=== PATIENT | male | born 1945 | race Caucasian/White ===

== ENCOUNTER 2016-10-14 18:41 | Inpatient (IN) | payer MEDICARE ==
--- NOTE | ~2016-10-14 | IDS ---
Interim Discharge Summary [facility] [address] [place]. [address] NAME: ISAIAS CONNORS : 49 STATUS : ADM IN PAT#: [id number] AGE: 70 ADM/REG DATE : 10/14/16 MR#: [id number] REPORT SERV DATE: 10/22/16 DICTATED BY: OTONIEL SEVILLA DATE: 10/22/16 REPORT STATUS : Draft TRANSCRIBED BY: MODL DATE: 10/22/16 ADMISSION DATE: 10/14/2016 DISCHARGE DATE: CONSULTANTS: Dr. Payan, Neurology, and Dr. Isaias Liu, orthopedic hand specialist. PROBLEM LIST: 1. Acute stroke, left centrum semiovale. 2. Acute gout attack, left wrist and left knee, much improved. 3. Metabolic encephalopathy after stroke with depression with paranoid features, now resolved. 4. Uncontrolled diabetes mellitus type 2 with A1c 11.2%, now improved. 5. Recent sepsis at [facility], 08/2016, with right ureter stones requiring stent placement and internalization. 6. History of previous atrial fibrillation with cardioversion. 7. Recent left upper extremity deep vein thrombosis associated with PICC line. 8. Severe protein calorie malnutrition. 9. Hypertension. 10.Fatty liver. HISTORY: This gentleman had been living at home, independent, driving, taking care of not only himself, but his demented and quite active. He was admitted to [facility], 09/21/2016. He was found down on the ground. He ended up admitted to the Intensive Care, had hyperosmolar nonketotic state along with acute kidney injury (did not end up needing dialysis) and was found ultimately to have stones in the right ureter and had stent placement. He was seen by the critical care team at [facility] as well as the meter reader, Dr. Cameron Cobb, and by urologist, Dr. Joselito Gonzalez. It was recommended after recovery, the patient is to follow up with Dr. Gonzalez to have the internalized stent removed and to have definitive stone management. After [facility], the patient was discharged to [facility], and he was transported to our [facility] Emergency Room because of progressive weakness, somnolence, and general decline. Also he was having episodes where he would curse and be angry which is not his typical baseline according to the family. Apparently, this was happening even when he was in the ICU at [facility], and it appears he was started on Remeron at the time of discharge. He had also been anorexic. Referred to our team to have evaluation and initially there was some question about whether he might have pneumonia. His procalcitonin levels were normal at 0.09 and white blood count was normal. X-ray with basilar atelectasis, otherwise unremarkable. So, he was not felt to have pneumonia. CT of the brain without contrast on admission showed no acute abnormalities. There was moderate cortical volume loss and advanced deep white matter ischemic changes throughout the brain plus an old right basal ganglia and right caudate head lacunar infarct. The patient also had a CT scan of the abdomen and pelvis on admission which revealed a double-J catheter in the right kidney drainage system with some mild perinephric stranding. A stone adjacent to the stent in the mid ureter measuring 7 x 4 mm. MRI of the brain on 10/16/2016 revealed acute centrum semiovale infarction on the left side, extensive white matter changes Interim Discharge Summary [address] [address] NAME: ISAIAS CONNORS : 49 STATUS : ADM IN [facility]#: [id number] AGE: 70 ADM/REG DATE : 10/14/16 MR#: [id number] REPORT SERV DATE: 10/22/16 DICTATED BY: OTONIEL SEVILLA DATE: 10/22/16 REPORT STATUS : Draft TRANSCRIBED BY: MODGwen DATE: 10/22/16 consistent with severe microangiopathic leukoencephalopathy. There was micro bleeds noted suggesting the possibility of amyloid angiopathy. Moderate generalized atrophy was noted. Carotid ultrasound revealed less than 50% luminal internal carotid artery stenosis bilaterally. The patient developed acute pain, swelling, and redness in his left wrist. No trauma. X- rays of that left wrist revealed no significant bony abnormalities. To me it looks like a gout like episode, I gave him some colchicine, had Hand specialist, Dr. Liu, see him. 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 Recommended a splint and continued with our current care. The colchicine helped quickly. We stopped it, and within a day or so, he started to have pain again in his left wrist and in his left knee, appeared quite similar. We discussed the option of colchicine again; however, the patient at this point in time was very anorexic, and his granddaughter who stated she is his power of state's attorney, want us to try to get something to stimulate his appetite as the Remeron at 15 mg was not adequately doing that, so we have given him some prednisone orally and his left knee and left wrist have returned where there is no pain. The patient was withdrawn. He was argumentative. He was not cooperative with medicines, x- rays, physical therapy, lab tests, just basically stating that nothing will get him better no matter what we do or say. We tried to encourage him that we thought his stroke and recent kidney stone and infection were conditions he could come back from. His bedside swallow showed he could take mechanical soft food with chopped meats with gravy and thin liquids. Neurology saw him and agreed that this might be a representation of depression with some paranoid ideas. He has probably has increase of his Remeron to 30 mg at bedtime, and he and I have talked about it a number of times, and he states that he is willing to try, and in fact now he is stating he wants to go to rehab and feels like he does have a chance for getting better. Neurology had also added some Depakote for mood stabilization. Currently, the patient is participating with therapy taking his medicines, allowing lab test done, cooperative with the staff. The patient is still on anticoagulation because of a history of previous paroxysmal atrial fibrillation and because of his stroke and he had a report of a DVT in his left upper extremity when he was at [facility] in August. Hopefully with the Remeron and the steroids, his appetite will improve. It has in the short term where he was not needing anything. Now, he is beginning to eat. He does have signs of severe protein calorie malnutrition with his albumin of 2.1 and with recent significant weight loss. He is going to need inpatient rehab. His granddaughter is helping and coordinating this as well. ARTEMIO/ERIL Otoniel Interim Discharge Summary [facility] [address] [address] NAME: ISAIAS CONNORS : 49 STATUS : ADM IN PAT#: [id number] AGE: 70 ADM/REG DATE : 10/14/16 MR#: [id number] REPORT SERV DATE: 10/22/16 DICTATED BY: OTONIEL SEVILLA DATE: 10/22/16 REPORT STATUS : Draft TRANSCRIBED BY: MODL DATE: 10/22/16 Uziel Sevilla M.D. / [id number] CC: Otoniel Sevilla M.D. [facility]
--- NOTE | ~2016-10-14 | HP ---
History And Physical [place] [id number] [facility] [place]. [address] NAME: ISAIAS CONNORS : 49 STATUS : ADM IN [facility]#: [id number] AGE: 70 ADM/REG DATE : 10/14/16 MR#: [id number] REPORT SERV DATE: 10/15/16 DICTATED BY: ANDREINA ALEX DATE: 10/14/16 REPORT STATUS : Draft TRANSCRIBED BY: MODL DATE: 10/14/16 DATE OF ADMISSION: 10/14/2016 CHIEF COMPLAINT: Progressive weakness. HISTORY OF PRESENT ILLNESS: The patient is a 70-year-old male accompanied by multiple family members, grandchildren, and their spouses, who bring the patient in after having progressive weakness, somnolence, and clinical decline from nursing facility. The patient is a 70-year-old male with past medical history of hypertension, atrial flutter per records that was cardioverted, also diabetes who has been noncompliant with his medications, who has been at [facility] and had extended ICU stay for DKA, resultantly was found to have "approximately 19 TIAs," and what was reported as ICU delirium, subsequently developed left upper extremity blood clot and had kidney stones with requirement for nephrostomy tube and resultant internalization. Was discharged to facility for rehab, but family noticed that since that rehab, the patient has been having generalized weakness, still having not gone to his baseline mental status, in which he has occasional breakouts of cursing, which is atypical for this patient, which was also noted while he was in ICU. Additionally, the patient was weighed and was reported to have lost 33 pounds in six days. Family was concerned about the weight loss and still not recovering mental status, and brought the patient to [facility]. Symptoms have been constant, moderate severity. No pain or radiating symptoms per the patient. The patient currently denies any nausea, vomiting, chest pain, or shortness of breath, but does feel grossly weak, saying that even when he tries to do activities, it is very difficult for him to participate in these activities. There are no relieving or worsening symptoms. Symptoms are still currently present, although mental status appears at his better point than what he has been. Family also requests the patient is not DNR as reported on transfer forms. REVIEW OF SYSTEMS: GENERAL: No fevers or chills. EYES: No eye pain or visual changes. Does have poor vision in right eye and on left eye. ENT: No sinus drainage or congestion. NEURO: Does have continuous delirium since recent admission for stroke with occasional confusion, but no headaches. SKIN: No rashes or bruising. RESPIRATORY: No shortness of breath. Mild cough. CV: No chest pain or palpitations. GI: No vomiting or diarrhea. : Does have dark urine with hematuria. No dysuria. MUSCULOSKELETAL: Does have arthralgias and weakness. ENDO: Does have increased weakness. HEME: Bleeding in urine, but no bruising on skin. IMMUNOLOGIC: No rhinorrhea. PSYCH: Does have confusion that has not resolved since admission at [facility] and no anxiety. PAST MEDICAL HISTORY: Noted for gout, atrial flutter status post cardioversion many years History And Physical [address] [address] NAME: ISAIAS CONNORS : [birth year] STATUS : ADM IN [facility]#: [id number] AGE: 70 ADM/REG DATE : 10/14/16 MR#: [id number] REPORT SERV DATE: 10/15/16 DICTATED BY: ANDREINA ALEX DATE: 10/14/16 REPORT STATUS : Draft TRANSCRIBED BY: JUDIE DATE: 10/14/16 ago, hypertension, recent DKA and uncontrolled diabetes, THEA, kidney stones with nephrostomy tube and internalization, right upper extremity DVT, medical noncompliance, and rhabdo. PAST SURGICAL HISTORY: Has had dental surgeries and cardioversion. SOCIAL HISTORY: Quit smoking 40 years ago and alcohol many years ago. No current alcohol. No illicits. 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 FAMILY HISTORY: Hypertension, stroke, heart disease, brain cancer, and gout. ALLERGIES: NO KNOWN DRUG ALLERGIES. MEDICATIONS: Allopurinol, Halfprin, Coreg, vitamin B, Lovenox treatment dose. Pepcid, Levemir, sliding scale Novolin, Prinivil, Remeron, Crestor, Flomax, and Coumadin. EKG: Sinus suly with a rate of 58, QTc 443. PHYSICAL EXAMINATION: VITAL SIGNS: Blood pressure 122/65, temperature 99.8, pulse 57, respirations 20, O2 saturation 90%. GENERAL: No acute distress. Calm. HEENT: Head normocephalic. Left eye , reactive. ENT: Dry mucous membranes. Tongue midline. NECK: No JVD. RESPIRATORY: Does have rhonchi in right middle lobe with dullness to percussion on posterior lung hanna, clear on left side. CV: Regular rhythm. No rubs. Rate mildly bradycardic at 57 to 60. GI: Soft, nontender, nondistended. Bowel sounds positive. No CVA tenderness. : Hematuria. Normal external genitalia. Circumcised. MUSCULOSKELETAL: Does have atrophy of all muscle groups with thenar atrophy in hands,but does have symmetrical strength in upper hand. Gait not tested. SKIN: Warm and dry. LYMPH: No cervical or supraclavicular lymphadenopathy. HEME: No bleeding or bruising. NEURO: Alert to person. Does have multiple episodes of somnolence while in room, but easily arousable. Conversation relevant to the patient's recent hospitalization, but does have areas of gaps and confusion, and word-finding issues. PSYCH: Pleasant. Appropriate mood. LABORATORY DATA: Chest x-ray with right middle lobe consolidation. Urinalysis, large blood. Negative leukocyte esterase and nitrite. Brain without contrast, read, no acute intracranial abnormality. Moderate cortical volume loss. Findings compatible with advanced chronic deep white matter ischemic changes. Old right basal ganglia and right caudate and lacunar infarcts. Ammonia 33. BNP 21.7. Sodium 143, potassium 3.3, chloride 104, bicarb 31, BUN and creatinine 19 and 1.18, glucose 168, calcium 7.9, magnesium 1.7. Troponin 0.04. WBC count 4.7, H and H 10 and 30.6, platelets 158. INR 1.7. ABG; pH 7.48, pCO2 of 42, PO2 of 63, bicarb 30.7. History And Physical [address] [address] NAME: ISAIAS CONNORS : 49 STATUS : ADM IN [facility]#: [id number] AGE: 70 ADM/REG DATE : 10/14/16 MR#: [id number] REPORT SERV DATE: 10/15/16 DICTATED BY: ANDREINA ALEX DATE: 10/14/16 REPORT STATUS : Draft TRANSCRIBED BY: JUDIE DATE: 10/14/16 ASSESSMENT AND PLAN: 1. Possible pneumonia, right middle lobe. 2. Delirium, subacute. 3. Diabetes type 2. 4. Hypokalemia. 5. Hypocalcemia. 6. Weight loss. 7. Left hand deep vein thrombosis history. 8. Atrial flutter history. 9. Hematuria with internalized nephrostomy tube per history. PLAN: 1. For possible pneumonia, unclear aspiration with recent stroke versus HCAP. We will place on HCAP treatment. Will need Speech Therapy evaluation. Check cultures. No leukocytosis, no tachycardia, no fevers, but does have mild delirium and unclear if this delirium is decompensation from pneumonia versus post residuals and baseline post stroke. 2. Delirium, subacute. As the patient has had waxing and waning episodes since discharge, ammonia level is within normal limits, we will treat pneumonia. Clinically, this appears to be post stroke decompensation with multiple territories affected in CT noted. As the patient has had change in demeanor and increased somnolence, family requesting continued evaluation. We will ask Neurology consult and obtain records from [facility], as these are not currently available to me. 3. Diabetes, noncompliant history. Sliding scale and continue Levemir. 4. Hypokalemia. Optimized. Replaced. 5. Hypocalcemia. Check ionized calcium. 6. Weight loss. Reported 33-pound weight loss in six days. I anticipate this is likely secondary to aggressive treatment that was done for DKA when the patient's blood sugar was over 1000 and required ICU stay. Did have muscle weakness, additionally rhabdomyolysis and THEA requiring nephrostomy tube and internalization. Although the patient does have muscle breakdown with atrophy in multiple muscle groups, I anticipate we will need to monitor with PT and OT. Check CPK in a.m. 7. Left arm DVT. Trigger appears to be from prior PICC line. Is on treatment dose Lovenox. Warfarin still subtherapeutic. Pharmacy to dose. Continue monitoring. 8. Arrhythmia history, flutter valve shock history. We will monitor on telemetry, but does not appear to be in or have had any recent flutter changes. Repeat EKG in a.m. 9. Hematuria with nephrostomy tube, internalized. Check noncontrast CT for placement. Does have hematuria on UA. We can do further decision after noncontrast CT replacement. We will obtain records, as I am unclear who the urologist is who placed this, as this was all done at [facility]. Clarification for the patient's code status. Family reports the patient is full code. All questions answered. DDN/MODL History And Physical [address] [place] [address] NAME: ISAIAS CONNORS : 49 STATUS : ADM IN PAT#: [id number] AGE: 70 ADM/REG DATE : 10/14/16 MR#: [id number] REPORT SERV DATE: 10/15/16 DICTATED BY: ANDREINA ALEX DATE: 10/14/16 REPORT STATUS : Draft TRANSCRIBED BY: JUDIE DATE: 10/14/16 Andreina Alex MD / [id number] CC: Stoney Thorne
--- NOTE | ~2016-10-14 | DS ---
Discharge Summary [facility] [address] [place]. [address] NAME: ISAIAS CONNORS : 49 STATUS : DIS IN PAT#: [id number] AGE: 70 ADM/REG DATE : 10/14/16 MR#: [id number] REPORT SERV DATE: 10/24/16 DICTATED BY: OTONIEL SEVILLA DATE: 10/23/16 REPORT STATUS : Draft TRANSCRIBED BY: MODL DATE: 10/23/16 ADMISSION DATE: 10/14/2016 DISCHARGE DATE: 10/23/2016 CONSULTANTS: Dr. Payan, Neurology. Dr. Isaias Liu, Orthopedic Hand Surgery. DISCHARGE DIAGNOSES: 1. Acute ischemic stroke, left centrum semiovale. 2. Acute gout attack, left wrist and left knee, now dramatically improved. 3. Metabolic encephalopathy after stroke with depression and paranoid features, now resolved. 4. Diabetes mellitus type 2 with A1c of 11.2%. 5. Recent sepsis at [facility] in August 2016 with right ureter stone requiring stent placement and internalization. 6. History of previous atrial fibrillation with cardioversion. 7. Recent left upper extremity DVT associated with PICC line at [facility] in August 2016. 8. Severe protein-calorie malnutrition. 9. Hypertension. 10.Fatty liver. HISTORY: This gentleman had been living at home, independent, driving, taking care of himself and his who has dementia. He was admitted to [facility], 09/21/2016. He was found down on a ground. He ended up admitted to the intensive care. He had hyperosmolar nonketotic state along with acute kidney injury and did not need dialysis. He was ultimately found to have stones in the right ureter, had a stent placement in that ureter and was to follow up with Dr. Joselito Gonzalez after discharge. Automotive Parts Salesperson, Dr. Cameron Cobb, he saw him while he was in the hospital at [facility] as well. After [facility], the patient was discharged to [facility]. He was brought to our [facility] emergency room because of progressive weakness, somnolence, and general decline. He also according to the family was having episodes where he would curse and be angry and noncooperative in general, which is not his baseline. Apparently, some of this was happening even when he was at [facility] and he was started on Remeron at that time, 15 mg at bedtime. He has recently been very anorexic. He has lost weight. He has protein- calorie malnutrition. He was referred to our team and initially, there was some question about whether he might have pneumonia. His procalcitonin levels were normal at 0.09 and white blood count was normal. Chest x-ray had basilar atelectasis, otherwise unremarkable. So, he was not felt to have pneumonia. CT of the brain without contrast on admission showed no acute abnormalities, but there was moderate cortical volume loss and advanced deep white matter ischemic changes throughout the brain plus an old right basilar ganglia and old right caudate lacunar infarct. He also had a CT scan of the abdomen and pelvis on admission, which revealed a double-J catheter in the right ureter with some mild perinephric stranding and a stone adjacent to the stent in the mid right ureter measuring 7 x 4 mm. Discharge Summary [address] [address] NAME: ISAIAS CONNORS : 49 STATUS : DIS IN PAT#: [id number] AGE: 70 ADM/REG DATE : 10/14/16 MR#: [id number] REPORT SERV DATE: 10/24/16 DICTATED BY: OTONIEL SEVILLA DATE: 10/23/16 REPORT STATUS : Draft TRANSCRIBED BY: JUDIE DATE: 10/23/16 MRI of the brain on 10/16/2016 revealed an acute ischemic stroke in the left centrum semiovale with extensive white matter changes consistent with severe microangiopathic leukoencephalopathy. There were also micro bleeds noted suggesting the possibility of amyloid angiopathy. Moderate generalized atrophy was noted. Carotid ultrasound revealed less than 50% luminal internal carotid artery stenosis bilaterally. Echocardiogram, 10/17/2016, revealed left atrial size 3.3 cm, left ventricular ejection fraction of 58%. No [id number] shunt on bubble study. Right ventricle appeared intact, dilated aortic root and ascending aorta. Trace mitral regurgitation. While here, the patient developed acute pain, swelling, and redness in his left wrist and left knee. No trauma. X-ray of the left wrist unremarkable. Clinically, it was most consistent with gout. Dr. Liu of [facility] agreed. I gave him some colchicine and he had a very quick improvement. He also wore a splint on that left wrist. Within a day of stopping the colchicine, he began to have pain again in that left wrist and his left knee. We discussed the option of colchicine again, however, at this point, the patient was very anorexic and his granddaughter who is his power of superintendent of generation wanted us to try something to stimulate his appetite as the Remeron 15 mg was not doing that. So, we gave him some prednisone orally and his left knee and left wrist have returned to where there is no pain. Ongoing, we have left him on some prednisone for now and would recommend a very slow reduction of this with monitoring of his wrist and knee. The patient is already on allopurinol 100 mg daily and we are continuing that. He is not needing the wrist brace on that left side whatsoever now. During the time here, the patient was initially withdrawn, argumentative, was not cooperative with taking medications or having x-rays done or physical therapy assessment or even allowing lab tests. He would not eat. He just stated that nothing is going to get him better no matter what we do or say. I tried to encourage him that we thought his stroke and recent kidney stone with infection were conditions from which he could recover. He did well with a swallow study showing that he can take mechanical soft food with chopped meats and gravy and thin liquids. I told him this was very encouraging. Neurology saw him and agreed that his depressed presentation might be relation to his stroke. We increased his Remeron to 30 mg at bedtime and Neurology added low-dose Depakote. With this, the patient became very cooperative, pleasant, eager to go to rehab, eager to regain his pre-stroke status. We have made arrangements for rehab at [facility]. The patient is still on anticoagulation, Coumadin because of his recent DVT in his left arm associated with the PICC line at [facility]. He also has a history of paroxysmal atrial fibrillation. At the time of discharge, his INR is 2.8. DISCHARGE MEDICATIONS: Allopurinol 100 mg daily, aspirin 81 mg daily, Coreg 12.5 mg twice a day, vitamin B12 1000 mcg daily, Depakote 250 mg twice a day, Pepcid 20 mg daily, Levemir 15 units subcutaneously twice a day, NovoLog a.c. and h.s. level 2 correctional, lisinopril 20 mg daily, Remeron 30 mg daily, Flomax 0.4 mg at supper, Coumadin 1 mg q.h.s. with adjustment thereafter at the facility with PT/INR at least twice a week, prednisone 20 mg daily (see Discharge Summary [facility] [place]. [address] NAME: ISAIAS CONNORS : 49 STATUS : DIS IN PAT#: [id number] AGE: 70 ADM/REG DATE : 10/14/16 MR#: [id number] REPORT SERV DATE: 10/24/16 DICTATED BY: OTONIEL SEVILLA DATE: 10/23/16 REPORT STATUS : Draft TRANSCRIBED BY: MODL DATE: 10/23/16 comments above about gradual tapering), Tylenol 650 q.4 hours p.r.n. pain, glucose tablets p.r.n. hypoglycemia, Senokot two tablets at bedtime p.r.n. constipation, Crestor 20 mg at bedtime. The patient is to follow up with the urology physician, Dr. Joselito Gonzalez within the next one to two weeks for definitive therapy for that stone that is still in the right ureter and eventual removal of the double-J stent. I spent 50 minutes with the patient and discharge plan today. ARTEMIO/JUDIE Otoniel Sevilla M.D. / [id number] CC: Stoney Cox MUHAMMAD Anand Shridharani, MD [facility]
--- NOTE | ~2016-10-14 | HP ---
History And Physical [id number] [place]. [address] NAME: ISAIAS CONNORS : 49 STATUS : ADM IN [facility]#: [id number] AGE: 70 ADM/REG DATE : 10/14/16 MR#: [id number] REPORT SERV DATE: 10/17/16 DICTATED BY: ISAIAS YUSUF DATE: 10/17/16 REPORT STATUS : Draft TRANSCRIBED BY: MODL DATE: 10/17/16 DATE OF ADMISSION: 10/14/2016 REASON: Left wrist pain and swelling. 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 Last month, he was admitted to [facility] on 09/21/2016 for diabetic ketoacidosis, acute encephalopathy, and sepsis. He also had some mental status changes which never significantly improved back to baseline. He was diagnosed with having multiple TIAs/cerebrovascular accidents/strokes, and he was eventually discharged to a rehab facility, but unfortunately, his condition only worsened. He was then admitted to this hospital and was brought by multiple family members on 10/14/2016 because of progressive decline at the rehab hospital. He was found to be slightly somnolent or the reason for his admission was somnolence, progressive weakness, and persistent mental status changes. He was found to have pneumonia and further work up more recently revealed a right- sided CVA of undetermined age (semi-acute). Mr. Connors has a history of gout, but he is a poor historian and cannot give a reason for his left wrist pain. It is known through the records that he is noncompliant with his medicines including his diabetic medicines that may have led him to his present severely mentally compromised condition. Nonetheless, he was diagnosed with a left wrist pain and swelling of unclear etiology or duration. I was asked to evaluate this left wrist. No other joints are involved at this time. PAST MEDICAL HISTORY: 1. Insulin-dependent diabetes, noncompliant with medications and history of multiple diabetic ketoacidosis. 2. CVA. 3. Hypertension. 4. Kidney stones. 5. Gout. 6. History of atrial flutter. 7. Reported significant weight loss of 33 pounds over the past week or two. 8. Hypercholesterolemia. 9. Benign prostatic hypertrophy. PAST SURGICAL HISTORY: Dental surgery and cardioversion of atrial flutter. ALLERGIES: NO KNOWN DRUG ALLERGIES. HOME MEDICATIONS: Allopurinol 100 mg daily, aspirin 81 mg daily, Coreg 12.5 mg b.i.d., vitamin B12 of 1000 mcg daily, Lovenox 100 mg subcu b.i.d., Pepcid 20 mg q.h.s., Levemir injection 15 units subcu twice a day, NovoLog R sliding scale insulin, Prinivil 20 mg daily, Remeron 15 mg q.h.s., Crestor 20 mg q.h.s., Flomax 0.4 mg daily, and warfarin 4.5 mg daily. History And Physical [address] 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 Negative for tobacco, alcohol, or illicit drug use. He lived at home with his who had dementia. His son also lived at home as well. REVIEW OF SYSTEMS: Unable to be obtained. PHYSICAL EXAMINATION: VITAL SIGNS: Temperature 98.2, heart rate 72, blood pressure 174/83, respiratory rate 17, and 93% O2 saturation on room air. GENERAL: He is a 70-year-old, confused, pleasant male, lying in bed, with bloody diaper on, in no acute distress. HEENT: He has some missing teeth. Teeth are in fair repair. Pharynx is not injected. He does have a "lazy eye" with a slight lateral gaze on his right eye. NECK: He has negative JVD on his neck. COR: Irregular. LUNGS: Regular rate and rhythm. ABDOMEN: Soft and nontender. MUSCULOSKELETAL: C-spine is nontender, slight decrease range of motion. Both shoulders, elbows, right wrist, and all fingers with functional range of motion. The left wrist is slightly flexed, warm, red, and swollen. There is tenderness in the area which causes decreased range of motion. There is also decreased range of motion in the finger secondary to wrist pain. Lower extremities reveals no pain with log rolling of the hips and no tenderness of the hips, the knees, or ankles. All toes with onychomycoses. 2+ DP and PT pulses as well as 2+ radial and ulnar pulses. NEURO: He is awake. He is confused. He is a poor historian. Able to answer some questions, but no way to confirm validity. His recall of distant, answered in a more timely manner and appeared to be more precise than more recent events. He is not oriented to time or place. Able to move all four extremities without any difficulties except for the left wrist. X-RAYS: Pending. IMPRESSION: 1. Left wrist pain of unknown duration and unknown cause. Acute injury/fracture versus acute gout attack. 2. History of gout. 3. Insulin-dependent diabetes with a history of ketoacidosis. 4. Encephalopathy. 5. History of transient ischemic attack/stroke. PLAN: 1. Obtain x-rays. 2. Splint for comfort. 3. Protect wrist for now with brace. History And Physical [address] [address] NAME: ISAIAS CONNORS : 49 STATUS : ADM IN [facility]#: [id number] AGE: 70 ADM/REG DATE : 10/14/16 MR#: [id number] REPORT SERV DATE: 10/17/16 DICTATED BY: ISAIAS YUSUF DATE: 10/17/16 REPORT STATUS : Draft TRANSCRIBED BY: JUDIE DATE: 10/17/16 JOANNE/JUDIE Isaias Yusuf M.D. / [id number] CC: Stoney Cox MUHAMMAD
[2016-10-14 18:47] LABS: ALLENS TEST Pos; BE (BASE EXCESS) 6.5 MEQ/L (0 +/- 2.5); CARBOXYHEMOGLOBIN 1.3 % (0-3); HCO3 (ACTUAL BICARBONATE) 30.7 MEQ/L (23-27); HEMOBLOGIN CONTENT 10.4 G/DL (14-18); INSTRUMENT SERIAL # 8087; METHEMOGLOBIN 0.1 % (0-3); O2 CONTENT 13.4 VOL% (18-24); PCO2 (CO2 TENSION) 42 MMHG (35-45); PO2 (O2 TENSION) 63 MMHG (79-93); SAMPLE Arterial; pH 7.48 (7.37-7.43)
[2016-10-14] MEDS ORDERED: FLOMAX4 PO (18:48)
[2016-10-14] MEDS ORDERED: HALF81 PO (18:48)
[2016-10-14] MEDS ORDERED: Z100 PO (18:49)
[2016-10-14] MEDS ORDERED: PRIN20 PO (18:49)
[2016-10-14] MEDS ORDERED: CYANO1000T PO (18:49)
[2016-10-14] MEDS ORDERED: C1 PO (18:50)
[2016-10-14] MEDS ORDERED: REM15 PO (18:52)
[2016-10-14] MEDS ORDERED: CRESTOR20 MG PO (18:52)
[2016-10-14] MEDS ORDERED: COREG12 PO (18:52)
[2016-10-14] MEDS ORDERED: PEP20 PO (18:52)
[2016-10-14] MEDS ORDERED: LEVEMIR SC (18:53)
[2016-10-14] MEDS ORDERED: LOVENOX1C SC (18:54)
[2016-10-14] MEDS ORDERED: INSNOVR SC (18:55)
[2016-10-14 19:40] LABS: BASOPHILS 0.4 %; BASOPHILS ABSOLUTE 0.02 10/3/uL (0.0-0.16); EOSINOPHILS 2.5 %; EOSINOPHILS ABSOLUTE 0.12 10/3/uL (0.0-0.53); HEMATOCRIT 30.6 % (40.0-51.0); IMMATURE GRANULOCYTES 0.2 %; IMMATURE GRANULOCYTES ABSOLUTE 0.01 10/3/uL (0.0-0.11); LYMPHOCYTES 49.2 %; LYMPHOCYTES ABSOLUTE 2.32 10/3/uL (0.67-4.30); MANUAL DIFF NO %; MEAN CORPUS HGB CONC 32.7 g/dL (32.0-36.0); MEAN CORPUSCULAR HEMOGLOB 28.7 pg (26.0-34.0); MEAN CORPUSCULAR VOLUME 87.9 fL (80-100); MEAN PLATELET VOLUME 10.4 fL (9.2-13.0); MONOCYTES 7.8 %; MONOCYTES ABSOLUTE 0.37 10/3/uL (0.21-1.20); NEUTROPHILS 39.9 %; NEUTROPHILS ABSOLUTE 1.88 10/3/uL (2.02-8.40); PLATELET COUNT 158 10/3/uL (150-400); RBC DISTRIBUTION WIDTH 13.6 % (12.0-16.0); RED CELL COUNT 3.48 10/6/uL (4.7-6.1); WHITE BLOOD CELLS 4.7 10/3/uL (4.5-10.5)
[2016-10-14 19:50] LABS: INTERNATIONAL NORMAL RATI 1.7 UNITS (-); PARTIAL THROMBO TIME 44.3 SEC (22.5-37.2); PROTIME (NOT ORD) 19.9 SEC (12.0-14.5)
[2016-10-14 19:56] LABS: BUN (BLOOD UREA NITROGEN) 19 MG/DL (6-23); CALCIUM, SERUM 7.9 MG/DL (8.5-10.4); CHEST PAIN PROFILE TAT 0 Hrs 20 Mins; CHLORIDE, SERUM 104 MMOL/L (96-112); CO2 (CARBON DIOXIDE) 31 MMOL/L (24-34); CREATININE 1.18 MG/DL (0.70-1.30); GFR AFRICAN AMERICAN 73 ML/MIN (>=60); GFR NON AFRICAN AMERICAN 63 ML/MIN (>=60); GLUCOSE, SERUM 168 MG/DL (60-99); POTASSIUM, SERUM 3.3 MMOL/L (3.5-5.3); SODIUM, SERUM 143 MMOL/L (135-148); TROPONIN I 0.04 NG/ML (<0.05)
[2016-10-14 20:03] LABS: B NATRIURETIC PEPTIDE (BNP) 21.7 PG/ML (< 100.0)
[2016-10-14 21:47] LABS: WBC (NOT ORDERED) (RFLEX) 0 (0-5)
[2016-10-14 21:58] LABS: ASCORBIC ACID (UR NOT ORDER) NEG (NEG); BILIRUBIN, URINE NEGATIVE (NEG); ER URINALYSIS TAT 0 Hrs 11 Mins; KETONE, URINE NEGATIVE (NEG); LEUKOCYTE ESTERASE(NOT OR NEG (NEG); NITRITE (URINE) NEG (NEG)
[2016-10-15 07:02] LABS: BASOPHILS 0.4 %; BASOPHILS ABSOLUTE 0.02 10/3/uL (0.0-0.16); EOSINOPHILS 2.9 %; EOSINOPHILS ABSOLUTE 0.14 10/3/uL (0.0-0.53); HEMATOCRIT 27.8 % (40.0-51.0); HEMOGLOBIN 9.3 g/dL (13.6-17.8); IMMATURE GRANULOCYTES 0.2 %; IMMATURE GRANULOCYTES ABSOLUTE 0.01 10/3/uL (0.0-0.11); LYMPHOCYTES 45.4 %; LYMPHOCYTES ABSOLUTE 2.21 10/3/uL (0.67-4.30); MANUAL DIFF NO %; MEAN CORPUS HGB CONC 33.5 g/dL (32.0-36.0); MEAN CORPUSCULAR HEMOGLOB 29.2 pg (26.0-34.0); MEAN CORPUSCULAR VOLUME 87.1 fL (80-100); MEAN PLATELET VOLUME 9.8 fL (9.2-13.0); MONOCYTES 6.8 %; MONOCYTES ABSOLUTE 0.33 10/3/uL (0.21-1.20); NEUTROPHILS 44.3 %; NEUTROPHILS ABSOLUTE 2.16 10/3/uL (2.02-8.40); PLATELET COUNT 148 10/3/uL (150-400); RBC DISTRIBUTION WIDTH 13.6 % (12.0-16.0); RED CELL COUNT 3.19 10/6/uL (4.7-6.1); WHITE BLOOD CELLS 4.9 10/3/uL (4.5-10.5)
[2016-10-15 07:08] LABS: INTERNATIONAL NORMAL RATI 1.8 UNITS (-)
[2016-10-15 07:19] LABS: A/G RATIO 0.5 (0.7-1.9); ALBUMIN 2.1 G/DL (3.5-5.0); ALKALINE PHOSPHATASE 57 U/L (45-117); BUN (BLOOD UREA NITROGEN) 16 MG/DL (6-23); CALCIUM, SERUM 7.9 MG/DL (8.5-10.4); CHLORIDE, SERUM 105 MMOL/L (96-112); CK-MB < 0.5 NG/ML; CO2 (CARBON DIOXIDE) 28 MMOL/L (24-34); CPK 90 U/L (0-200); CREATININE 0.98 MG/DL (0.70-1.30); GFR AFRICAN AMERICAN 91 ML/MIN (>=60); GFR NON AFRICAN AMERICAN 79 ML/MIN (>=60); GLOBULIN 4.5 G/DL (2.5-4.1); GLUCOSE, SERUM 124 MG/DL (60-99); POTASSIUM, SERUM 3.4 MMOL/L (3.5-5.3); SGOT(AST) 41 U/L (5-40); SGPT(ALT) 35 U/L (5-65); SODIUM, SERUM 142 MMOL/L (135-148); TOTAL BILIRUBIN 0.5 MG/DL (0-1.2); TOTAL PROTEIN 6.6 G/DL (6.0-8.5); TROPONIN I 0.04 NG/ML (<0.05)
[2016-10-15 08:45] LABS: PROCALCITONIN 0.09 ng/mL (<0.5)
[2016-10-15 10:55] LABS: CPK 83 U/L (0-200); TROPONIN I 0.03 NG/ML (<0.05)
[2016-10-15 10:56] LABS: CK-MB < 0.5 NG/ML
[2016-10-16 05:34] LABS: BASOPHILS 0.5 %; BASOPHILS ABSOLUTE 0.03 10/3/uL (0.0-0.16); EOSINOPHILS 3.1 %; EOSINOPHILS ABSOLUTE 0.17 10/3/uL (0.0-0.53); HEMOGLOBIN 9.7 g/dL (13.6-17.8); IMMATURE GRANULOCYTES 0.2 %; IMMATURE GRANULOCYTES ABSOLUTE 0.01 10/3/uL (0.0-0.11); LYMPHOCYTES 41.1 %; LYMPHOCYTES ABSOLUTE 2.28 10/3/uL (0.67-4.30); MEAN CORPUS HGB CONC 33.4 g/dL (32.0-36.0); MEAN CORPUSCULAR HEMOGLOB 29.4 pg (26.0-34.0); MEAN CORPUSCULAR VOLUME 87.9 fL (80-100); MEAN PLATELET VOLUME 9.9 fL (9.2-13.0); MONOCYTES 5.6 %; MONOCYTES ABSOLUTE 0.31 10/3/uL (0.21-1.20); NEUTROPHILS 49.5 %; NEUTROPHILS ABSOLUTE 2.75 10/3/uL (2.02-8.40); PLATELET COUNT 150 10/3/uL (150-400); RBC DISTRIBUTION WIDTH 13.4 % (12.0-16.0); WHITE BLOOD CELLS 5.6 10/3/uL (4.5-10.5)
[2016-10-16 05:35] LABS: MANUAL DIFF NO %
[2016-10-16 05:41] LABS: INTERNATIONAL NORMAL RATI 2.1 UNITS (-); PROTIME (NOT ORD) 23.3 SEC (12.0-14.5)
[2016-10-17 05:18] LABS: HEMATOCRIT 30.7 % (40.0-51.0); HEMOGLOBIN 10.4 g/dL (13.6-17.8); MEAN CORPUS HGB CONC 33.9 g/dL (32.0-36.0); MEAN CORPUSCULAR HEMOGLOB 29.3 pg (26.0-34.0); MEAN CORPUSCULAR VOLUME 86.5 fL (80-100); MEAN PLATELET VOLUME 10.2 fL (9.2-13.0); PLATELET COUNT 160 10/3/uL (150-400); RBC DISTRIBUTION WIDTH 13.3 % (12.0-16.0); RED CELL COUNT 3.55 10/6/uL (4.7-6.1)
[2016-10-17 05:19] LABS: MANUAL DIFF YES %; WHITE BLOOD CELLS 8.8 10/3/uL (4.5-10.5)
[2016-10-17 05:21] LABS: INTERNATIONAL NORMAL RATI 2.3 UNITS (-); PROTIME (NOT ORD) 24.7 SEC (12.0-14.5)
[2016-10-17 05:26] LABS: CALCIUM, SERUM 8.2 MG/DL (8.5-10.4); CHLORIDE, SERUM 103 MMOL/L (96-112); CO2 (CARBON DIOXIDE) 28 MMOL/L (24-34); CREATININE 0.88 MG/DL (0.70-1.30); GFR AFRICAN AMERICAN 102 ML/MIN (>=60); GFR NON AFRICAN AMERICAN 88 ML/MIN (>=60); GLUCOSE, SERUM 125 MG/DL (60-99); POTASSIUM, SERUM 3.1 MMOL/L (3.5-5.3); SODIUM, SERUM 143 MMOL/L (135-148)
[2016-10-17 05:28] LABS: BUN (BLOOD UREA NITROGEN) 10 MG/DL (6-23)
[2016-10-17 06:18] LABS: BAND NEUTROPHILS 4 %; EOSINOPHILS 1 %; EOSINOPHILS ABSOLUTE (CALC) 0.09 10/3/uL (0.0-0.53); LYMPHOCYTES 14 %; LYMPHOCYTES ABSOLUTE (CALC) 1.23 10/3/uL (0.67-4.30); MONOCYTES 2 %; MONOCYTES ABSOLUTE (CALC) 0.18 10/3/uL (0.21-1.20); PLATELET ESTIMATE ADQ (ADEQUATE); RBC MORPHOLOGY NORM (NORMAL); SEGMENTED NEUTROPHIL (0) 79 %; TOTAL NUCLEATED CELLS 100
[2016-10-17 11:46] LABS: FOLATE 17.2 NG/ML (>5.2); FREE T4 1.21 NG/DL (0.76-1.46)
[2016-10-18 06:59] LABS: HEMATOCRIT 30.5 % (40.0-51.0); HEMOGLOBIN 10.2 g/dL (13.6-17.8); MEAN CORPUS HGB CONC 33.4 g/dL (32.0-36.0); MEAN CORPUSCULAR HEMOGLOB 28.8 pg (26.0-34.0); MEAN CORPUSCULAR VOLUME 86.2 fL (80-100); MEAN PLATELET VOLUME 10.2 fL (9.2-13.0); PLATELET COUNT 162 10/3/uL (150-400); RBC DISTRIBUTION WIDTH 13.3 % (12.0-16.0); RED CELL COUNT 3.54 10/6/uL (4.7-6.1); WHITE BLOOD CELLS 8.6 10/3/uL (4.5-10.5)
[2016-10-18 07:02] LABS: MANUAL DIFF YES %
[2016-10-18 07:07] LABS: INTERNATIONAL NORMAL RATI 2.4 UNITS (-)
[2016-10-18 07:17] LABS: LYMPHOCYTES 20 %; LYMPHOCYTES ABSOLUTE (CALC) 1.72 10/3/uL (0.67-4.30); MONOCYTES 4 %; MONOCYTES ABSOLUTE (CALC) 0.34 10/3/uL (0.21-1.20); NEUTROPHILS ABSOLUTE (CALC) 6.54 10/3/uL (2.02-8.40); PLATELET ESTIMATE ADQ (ADEQUATE); RBC MORPHOLOGY NORM (NORMAL); SEGMENTED NEUTROPHIL (0) 76 %; TOTAL NUCLEATED CELLS 100
[2016-10-18 07:30] LABS: CALCIUM, SERUM 8.3 MG/DL (8.5-10.4); CHLORIDE, SERUM 105 MMOL/L (96-112); CHOL/HDL RATIO(NOT ORDER) 2.6 (0-5); CHOLESTEROL 92 MG/DL (< 200); CO2 (CARBON DIOXIDE) 27 MMOL/L (24-34); CREATININE 0.86 MG/DL (0.70-1.30); GFR AFRICAN AMERICAN 103 ML/MIN (>=60); GFR NON AFRICAN AMERICAN 89 ML/MIN (>=60); GLUCOSE, SERUM 121 MG/DL (60-99); HDL CHOLESTEROL 35 MG/DL (> 39); LDL CHOLESTEROL 35 MG/DL (< 130); NON-HDL CHOLESTEROL 57 MG/DL (< 160); POTASSIUM, SERUM 3.3 MMOL/L (3.5-5.3); SODIUM, SERUM 142 MMOL/L (135-148); TRIGLYCERIDE 114 MG/DL (< 150)
[2016-10-18 07:31] LABS: BUN (BLOOD UREA NITROGEN) 14 MG/DL (6-23)
[2016-10-18 08:46] LABS: SED RATE 116 MM/HR (0-15)
[2016-10-19 05:56] LABS: BASOPHILS 0.2 %; BASOPHILS ABSOLUTE 0.02 10/3/uL (0.0-0.16); EOSINOPHILS 0.7 %; EOSINOPHILS ABSOLUTE 0.06 10/3/uL (0.0-0.53); HEMATOCRIT 28.2 % (40.0-51.0); HEMOGLOBIN 9.4 g/dL (13.6-17.8); IMMATURE GRANULOCYTES 0.2 %; IMMATURE GRANULOCYTES ABSOLUTE 0.02 10/3/uL (0.0-0.11); LYMPHOCYTES 30.2 %; LYMPHOCYTES ABSOLUTE 2.56 10/3/uL (0.67-4.30); MEAN CORPUS HGB CONC 33.3 g/dL (32.0-36.0); MEAN CORPUSCULAR HEMOGLOB 29.1 pg (26.0-34.0); MEAN CORPUSCULAR VOLUME 87.3 fL (80-100); MEAN PLATELET VOLUME 10.2 fL (9.2-13.0); MONOCYTES 7.2 %; MONOCYTES ABSOLUTE 0.61 10/3/uL (0.21-1.20); NEUTROPHILS 61.5 %; NEUTROPHILS ABSOLUTE 5.21 10/3/uL (2.02-8.40); PLATELET COUNT 182 10/3/uL (150-400); RBC DISTRIBUTION WIDTH 13.5 % (12.0-16.0); RED CELL COUNT 3.23 10/6/uL (4.7-6.1); WHITE BLOOD CELLS 8.5 10/3/uL (4.5-10.5)
[2016-10-19 05:57] LABS: MANUAL DIFF NO %
[2016-10-19 06:03] LABS: PROTIME (NOT ORD) 30.7 SEC (12.0-14.5)
[2016-10-19 06:07] LABS: CALCIUM, SERUM 8.6 MG/DL (8.5-10.4); CHLORIDE, SERUM 102 MMOL/L (96-112); CO2 (CARBON DIOXIDE) 28 MMOL/L (24-34); CREATININE 1.02 MG/DL (0.70-1.30); GFR AFRICAN AMERICAN 87 ML/MIN (>=60); GFR NON AFRICAN AMERICAN 75 ML/MIN (>=60); GLUCOSE, SERUM 117 MG/DL (60-99); POTASSIUM, SERUM 3.2 MMOL/L (3.5-5.3); SODIUM, SERUM 142 MMOL/L (135-148)
[2016-10-19 06:08] LABS: BUN (BLOOD UREA NITROGEN) 18 MG/DL (6-23)
[2016-10-19 06:23] LABS: C-REACTIVE PROTEIN ULTRAQUANT 92.8 MG/L (<3.0)
[2016-10-19 06:43] LABS: SED RATE 124 MM/HR (0-15)
[2016-10-21 07:03] LABS: INTERNATIONAL NORMAL RATI 3.1 UNITS (-); PROTIME (NOT ORD) 31.9 SEC (12.0-14.5)
[2016-10-22 07:10] LABS: INTERNATIONAL NORMAL RATI 3.1 UNITS (-); PROTIME (NOT ORD) 31.7 SEC (12.0-14.5)
[2016-10-22 07:19] LABS: BASOPHILS 0.3 %; BASOPHILS ABSOLUTE 0.02 10/3/uL (0.0-0.16); EOSINOPHILS 0.4 %; EOSINOPHILS ABSOLUTE 0.03 10/3/uL (0.0-0.53); HEMATOCRIT 29.9 % (40.0-51.0); HEMOGLOBIN 9.7 g/dL (13.6-17.8); IMMATURE GRANULOCYTES 0.1 %; IMMATURE GRANULOCYTES ABSOLUTE 0.01 10/3/uL (0.0-0.11); LYMPHOCYTES 29.4 %; LYMPHOCYTES ABSOLUTE 2.12 10/3/uL (0.67-4.30); MEAN CORPUS HGB CONC 32.4 g/dL (32.0-36.0); MEAN CORPUSCULAR HEMOGLOB 28.1 pg (26.0-34.0); MEAN CORPUSCULAR VOLUME 86.7 fL (80-100); MONOCYTES 7.5 %; MONOCYTES ABSOLUTE 0.54 10/3/uL (0.21-1.20); NEUTROPHILS 62.3 %; NEUTROPHILS ABSOLUTE 4.49 10/3/uL (2.02-8.40); RBC DISTRIBUTION WIDTH 13.4 % (12.0-16.0); RED CELL COUNT 3.45 10/6/uL (4.7-6.1); WHITE BLOOD CELLS 7.2 10/3/uL (4.5-10.5)
[2016-10-22 07:21] LABS: CALCIUM, SERUM 8.8 MG/DL (8.5-10.4); CHLORIDE, SERUM 103 MMOL/L (96-112); CO2 (CARBON DIOXIDE) 29 MMOL/L (24-34); CREATININE 1.08 MG/DL (0.70-1.30); GFR AFRICAN AMERICAN 81 ML/MIN (>=60); GFR NON AFRICAN AMERICAN 70 ML/MIN (>=60); POTASSIUM, SERUM 3.5 MMOL/L (3.5-5.3); SODIUM, SERUM 142 MMOL/L (135-148)
[2016-10-22 07:23] LABS: BUN (BLOOD UREA NITROGEN) 25 MG/DL (6-23); GLUCOSE, SERUM 189 MG/DL (60-99)
[2016-10-22 07:56] LABS: MANUAL DIFF NO %; PLATELET COUNT 272 10/3/uL (150-400)
[2016-10-23 08:09] LABS: INTERNATIONAL NORMAL RATI 2.8 UNITS (-); PROTIME (NOT ORD) 29.3 SEC (12.0-14.5)
[2017-01-22] MEDS ORDERED: NORCO1 TA1 PO (13:21)
[2017-01-22] MEDS ORDERED: C5 PO (13:22)
[2017-01-22] MEDS ORDERED: COREG12 PO (13:22)
[2017-01-22] MEDS ORDERED: PEP20 PO (13:22)
[2017-01-22] MEDS ORDERED: PRIN20 PO (13:22)
[2017-01-22] MEDS ORDERED: REMERON30 MG PO (13:23)
[2017-01-22] MEDS ORDERED: Z100 PO (13:23)
[2017-01-22] MEDS ORDERED: IMDUR30 PO (13:23)
[2017-01-22] MEDS ORDERED: APRES25 PO (13:25)
[2017-01-22] MEDS ORDERED: FLOMAX4 PO (13:25)
[2017-01-22] MEDS ORDERED: CRESTOR20 MG PO (13:25)
[2017-01-22] MEDS ORDERED: LEVEMIR SC (13:26)
[2017-01-22] MEDS ORDERED: NOVOLOG SC (13:26)
== END 2016-10-23 15:29 | DRG 64 ==
LOC: ER 18:41 → 1SO 23:07
PROVIDERS: Emergency Medicine; Hospitalist; Internal Medicine; Psychiatry & Neurology Neurology; Student in an Organized Health Care Education/Training Program
DX: I63.9 Cerebral infarction, unspecified (principal); E43 Unspecified severe protein-calorie malnutrition; G93.41 Metabolic encephalopathy; N17.9 Acute kidney failure, unspecified; I48.92 Unspecified atrial flutter; I50.22 Chronic systolic (congestive) heart failure; E11.65 Type 2 diabetes mellitus with hyperglycemia; E83.51 Hypocalcemia; E87.6 Hypokalemia; E78.5 Hyperlipidemia, unspecified; N40.0 Benign prostatic hyperplasia without lower urinary tract symptoms; F32.9 Major depressive disorder, single episode, unspecified; I10 Essential (primary) hypertension; Z91.14 Patient's other noncompliance with medication regimen; Z79.4 Long term (current) use of insulin; Z79.01 Long term (current) use of anticoagulants; Z79.899 Other long term (current) drug therapy; Z86.718 Personal history of other venous thrombosis and embolism; Z87.891 Personal history of nicotine dependence; Z86.73 Personal history of transient ischemic attack (TIA), and cerebral infarction without residual deficits; Z87.442 Personal history of urinary calculi; Z79.82 Long term (current) use of aspirin; Z82.49 Family history of ischemic heart disease and other diseases of the circulatory system; Z82.2 Family history of deafness and hearing loss; Z80.8 Family history of malignant neoplasm of other organs or systems
CPT/HCPCS: 36600; 70450; 70553; 71010; 73110-LT; 74176; 80048; 80053; 80061; 81001; 82140; 82330; 82550; 82553; 82607; 82746; 82805; 82962; 83036; 83735; 83880; 84145; 84439; 84443; 84484; 84550; 85025; 85610; 85652; 85730; 86140; 86141; 87040; 87449; 92523-GN; 92610-GN; 93005; 93306; 93880; 94640; 97162-GP; 97165-GO; 97530-GP; 97535-GO; 99285; A9270-GY; A9577; G8978-CL-GP; G8979-CJ-GP; G8987-CK-GO; G8988-CJ-GO; G8996-CJ-GN; G8997-CJ-GN; G8998-CJ-GN; G9162-CK-GN; G9163-CK-GN; G9164-CK-GN; J0360; J0692; J2405; J3370

== ENCOUNTER 2016-11-05 16:05 | Inpatient (IN) | payer MEDICARE ==
--- NOTE | ~2016-11-05 | HP ---
History And Physical [facility] [address] [place]. [address] NAME: ISAIAS CONNORS : 49 STATUS : DIS IN PAT#: [id number] AGE: 70 ADM/REG DATE : 11/05/16 MR#: [id number] REPORT SERV DATE: 11/06/16 DICTATED BY: ISAAC BELL DATE: 11/05/16 REPORT STATUS : Draft TRANSCRIBED BY: MODGwen DATE: 11/05/16 DATE OF ADMISSION: 11/05/2016 POINT OF ENTRY: [facility] Emergency Department. PRIMARY CARE PHYSICIAN: Unknown at this time. CHIEF COMPLAINT: Left leg pain, weakness, anorexia, and confusion. HISTORY OF PRESENT ILLNESS: Mr. Connors is a 70-year-old gentleman with a history of uncontrolled insulin-dependent diabetes mellitus type 2, recent hemoglobin A1c of 11.2, as well as recent multiple cerebrovascular accidents, who was brought to the emergency department by his family members for multiple complaints including left lower extremity pain and weakness, continued anorexia with associated weakness, as well as reports of confusion. The patient was admitted to the Hospitalist Service from 10/14/2016 through 10/23/2016 for similar complaints of weakness and confusion status post a prolonged admission at [facility]. During his hospital stay here, he was diagnosed with acute ischemic stroke with a left centrum semiovale as well as left wrist and knee acute gout attack, noted to have metabolic encephalopathy with delirium and paranoid features. The patient was subsequently discharged back to his nursing facility. According to the ER physician, as no family members are at bedside provide a corroborating history, the patient was doing so well at his nursing facility that he was discharged to home on the last few days. Upon arrival home, unfortunately, he has started to decline precipitously with very poor oral intake secondary to poor appetite with worsening weakness as well as concerns for confusion. The patient does also report that his primary concern is left lower extremity pain and swelling with inability to walk secondary to the pain. Initial evaluation in the emergency department is notable for labs notable for a BUN of 40 and creatinine of 1.87, consistent with acute kidney injury and dehydration. Urinalysis did have some mild pyuria. Chest x-ray was clear. CT scan of the brain was negative. CT scan of the abdomen and pelvis also was unremarkable, and left lower extremity Doppler was negative for DVT, but notable for Rosas cyst. The patient was given some IV fluids as well as some colchicine and some pain control and admitted to the Hospitalist Service for further evaluation and management. REVIEW OF SYSTEMS: Comprehensive review of systems is otherwise negative unless listed in history present illness. The patient denies specifically any dysphagia, abdominal pain, nausea, vomiting, diarrhea, or constipation. He states that his poor oral intake is just secondary to not feeling hungry. PREVIOUS MEDICAL HISTORY: 1. Multiple CVAs and TIAs. 2. Uncontrolled insulin-dependent diabetes mellitus type 2. Hemoglobin A1c of 11.2. History And Physical [address] [address] NAME: ISAIAS CONNORS : 49 STATUS : DIS IN PAT#: [id number] AGE: 70 ADM/REG DATE : 11/05/16 MR#: [id number] REPORT SERV DATE: 11/06/16 DICTATED BY: ISAAC BELL DATE: 11/05/16 REPORT STATUS : Draft TRANSCRIBED BY: JUDIE DATE: 11/05/16 3. Hypertension. 4. History of atrial flutter, status post cardioversion. 5. Recent left upper extremity catheter-related deep venous thrombosis on Coumadin. 6. History of nephrolithiasis, status post ureteral stent placement. 7. Gout. 8. BPH. 9. Severe protein calorie malnutrition. 10.Admission for toxic metabolic encephalopathy and delirium. SURGICAL HISTORY: Direct current cardioversion as well as dental surgeries. ALLERGIES: NO KNOWN DRUG ALLERGIES. HOME MEDICATIONS: 1. Allopurinol 100 mg daily. 2. Carvedilol 12.5 mg b.i.d. 3. Depakote 250 mg b.i.d. 4. Insulin sliding scale. 5. Levemir 15 units b.i.d. 6. Lisinopril 20 mg daily. 7. Remeron 30 mg at bedtime. 8. Simvastatin 20 mg at bedtime. 9. Flomax 0.4 mg daily. 10.Coumadin 1 mg daily. SOCIAL HISTORY: Denies any tobacco, alcohol, or illicits. FAMILY MEDICAL HISTORY: Hypertension, stroke, heart disease, and brain cancer. LABS AND IMAGIN. White count is 10.4, hemoglobin 10.2, hematocrit is 31.1, platelet count is 171. INR is pending. 2. Sodium is 139, potassium 4.2, chloride 99, carbon dioxide 31, BUN 40, creatinine 1.87, glucose is 167, calcium is 9.1, protein 7.7, albumin is 2.6, bilirubin is 0.7, ALT is 18, AST 23, alkaline phosphatase is 72. 3. Troponin less than 0.02. 4. Lactic acid 1.1. 5. Urinalysis: Specific gravity is 1.018, trace leukocyte esterase, 111 red blood cells with 8 white blood cells per high-powered field. 6. EKG per my review shows normal sinus rhythm with first-degree AV block with occasional PVCs, but otherwise, no evidence of any acute ischemia or infarction. 7. CT scan of the brain shows no acute changes. Does show extensive chronic microvascular changes as well as moderate diffuse cerebral involutional changes and advanced diffuse deep white matter chronic microvascular ischemic changes with a small old lacunar infarct with a right basal ganglia. 8. CT scan of the abdomen and pelvis shows a right ureteral stent in satisfactory position with no dilatation of the collecting system. Multiple nonobstructing bilateral History And Physical [address] [address] NAME: ISAIAS CONNORS : 49 STATUS : DIS IN PAT#: [id number] AGE: 70 ADM/REG DATE : 11/05/16 MR#: [id number] REPORT SERV DATE: 11/06/16 DICTATED BY: ISAAC BELL DATE: 11/05/16 REPORT STATUS : Draft TRANSCRIBED BY: JUDIE DATE: 11/05/16 intrarenal calculi and small cysts, left renal cortex. Nonspecific mild infiltration of the right perirenal fat planes. Normal appendix, right lower quadrant. Mild diverticulosis, descending colon. No diverticulitis pattern seen. 9. Chest x-ray per review shows no acute cardiopulmonary abnormality. PHYSICAL EXAMINATION: VITAL SIGNS: Temperature is 98.0 degrees Fahrenheit, pulse is 78, respirations 16, saturating 96% on room air, blood pressure 99/60. On recheck, blood pressure is now 124/76, pulse of 85. GENERAL: The patient is awake, alert, in no acute distress, resting comfortably in bed. He is an elderly chronically ill-appearing male. No family is at bedside. HEENT: Atraumatic and normocephalic. Slightly dry mucous membranes. Pupils are equal, round, reactive to light and accommodation. Extraocular eye movements intact. No scleral icterus. NECK: No jugular venous distention. No carotid bruits. CARDIAC: Regular rate and rhythm. No murmurs or gallops. Normal S1, S2. LUNGS: Clear to auscultation bilaterally. No wheezes, rhonchi, or crackles. ABDOMEN: Obese, soft, nontender, nondistended. Good bowel sounds. No rebound, guarding, or rigidity. EXTREMITIES: Warm and perfused. No cyanosis, clubbing, or edema. The left knee does have an effusion and is slightly warm to the touch, but there is no overlying erythema noted. SKIN: Warm and dry except for noted above. PSYCH: Affect is appropriate. NEURO: He is alert and oriented x2. He is able to tell me his name, his birthday, the fact that he is at a hospital in [place], but is unable to tell me the date or the specific city or name of the hospital he is in. Cranial nerves 2 through 12 are grossly intact. Speech is normal. Gait is not assessed. ASSESSMENT: Mr. Connors is a 70-year-old gentleman with an extensive previous medical history, who was brought to the emergency department by his family members for worsening appetite with anorexia and associated weakness as well as left lower extremity pain and concern for worsening confusion. PROBLEM LIST: 1. Acute kidney injury. 2. Anorexia. 3. Weakness. 4. Left knee gout arthropathy. 5. Insulin-dependent diabetes mellitus type 2. 6. Encephalopathy. 7. History of multiple recent cerebrovascular accidents and transient ischemic attacks. PLAN: 1. Acute kidney injury is likely secondary to dehydration from poor oral intake as well as use of lisinopril. We will hold the patient's nephrotoxic medications, check urine electrolytes. CT of the abdomen and pelvis without any evidence of obstruction. We will provide aggressive IV fluid hydration, follow up repeat BMP in the morning. History And Physical [address] [address] NAME: ISAIAS CONNORS : 49 STATUS : DIS IN PAT#: [id number] AGE: 70 ADM/REG DATE : 11/05/16 MR#: [id number] REPORT SERV DATE: 11/06/16 DICTATED BY: ISAAC BELL DATE: 11/05/16 REPORT STATUS : Draft TRANSCRIBED BY: JUDIE DATE: 11/05/16 2. Left knee gouty arthropathy. We will continue the patient's low-dose allopurinol. Hold off on any further colchicine given his acute kidney injury. We will place him on some low-dose prednisone as this seems to have improved his gout in the past. We will also check a knee x-ray. Of note, lower extremity Doppler was reportedly negative for DVT. 3. Insulin-dependent diabetes mellitus type 2. Place the patient on level 2 insulin sliding scale. Continue the patient's home long-acting insulin. 4. Weakness. We will ask Physical Therapy to evaluate the patient. The patient may need to go back to his longterm facility given continued poor oral intake and dehydration. 5. Encephalopathy. I do not appreciate any active delirium or significant confusion at this time; however, we will check ammonia level, thyroid function studies, and hold sedating medications as much as possible. 6. Urinary tract infection. The patient does have some mild pyuria on urinalysis. He does deny any current symptoms at this time, but given his weakness, anorexia, and reports of confusion, we will empirically treat him with IV antibiotics, follow up urine culture. 7. History of recent CVA and TIA in the past. His CT scan of the brain here is unremarkable. He has no focal neurologic deficits at this time. We will hold off on repeat MRI at this time. 8. DVT prophylaxis. The patient currently is on Coumadin. 9. Code status. The patient wished to be full code. DARIUS/JUDIE Isaac Bell MD / [id number] CC: Pat Goss M.D.
--- NOTE | ~2016-11-05 | DS ---
Discharge Summary [address] [place]. [address] NAME: ISAIAS CONNORS : 49 STATUS : DIS IN PAT#: [id number] AGE: 70 ADM/REG DATE : 11/05/16 MR#: [id number] REPORT SERV DATE: 11/14/16 DICTATED BY: JAQUELIN DE PAZ DATE: 11/10/16 REPORT STATUS : Draft TRANSCRIBED BY: JUDIE DATE: 11/10/16 ADMISSION DATE: 11/05/2016 DISCHARGE DATE: 11/10/2016 DIAGNOSES: 1. Encephalopathy, resolved. 2. Failure to thrive, improved. 3. Hypertension. 4. Acute kidney injury with dehydration, resolved. 5. Type 2 diabetes. 6. History of recent cerebrovascular at [place] in 08/2016. 7. Suspected urinary tract infection. 8. History of renal stones, status post recent stent at [facility]. 9. Left knee gouty arthropathy, resolved. FOLLOWUP: The patient should follow up with his urologist, Dr. Manriquez, in two weeks. The patient should follow up with primary care physician in one to two weeks. The patient should have INR in five days with a goal INR of 2 to 3. The patient also should continue with physical therapy. CONSULTANTS: Urology, Dr. Lim. DISCHARGE MEDICATIONS: Allopurinol 100 mg p.o. daily, aspirin 81 mg p.o. daily, Coreg 12.5 mg p.o. b.i.d., Lovenox 110 mg subcu q.12 hours for four days only, level 2 subcutaneous sliding scale insulin, Imdur ER 30 mg p.o. daily, lisinopril 20 mg p.o. daily, Remeron 30 mg p.o. daily, Florastor one cap p.o. b.i.d., Flomax 0.4 mg p.o. daily, thiamine 100 mg p.o. daily, Depakene 250 mg p.o. b.i.d., Levemir 20 units subcu b.i.d., Tylenol 650 mg p.o. q.6 hours p.r.n., Crestor 20 mg p.o. q.h.s., warfarin 7 mg p.o. x1 and then 5 mg p.o. daily, hydralazine 25 mg p.o. t.i.d. and 25 mg p.o. q.6 hours p.r.n. systolic blood pressure greater than 160. HOSPITALIST: Dr. Shaheen Mahmood, Dr. Driss Santiago, and Dr. De Paz. IMAGING: CT of the brain without contrast showing no acute intracranial pathology. Moderate diffuse cerebral involutional changes. Small old lacunar infarct in the right basal ganglia. CT of the abdomen and pelvis without contrast showing a right ureteral stent in satisfactory position with no dilatation. There was a 6 x 7 mm retained ureteral calculus alongside the ureteral stent. There are multiple nonobstructing bilateral intrarenal calculi, small cysts, and a left renal cortex. Normal appendix in the right lower quadrant. Mild diverticulosis and no diverticulitis. Venous Doppler: The left lower extremity showing no DVT and a moderate sized Rosas's cyst in the left popliteal fossa. Discharge Summary [address] [address] NAME: ISAIAS CONNORS : 49 STATUS : DIS IN PAT#: [id number] AGE: 70 ADM/REG DATE : 11/05/16 MR#: [id number] REPORT SERV DATE: 11/14/16 DICTATED BY: JAQUELIN DE PAZ DATE: 11/10/16 REPORT STATUS : Draft TRANSCRIBED BY: JUDIE DATE: 11/10/16 HOSPITAL COURSE: Please see H and P dictated by Dr. Shaheen Mahmood. This is a 70 years old male with a past medical history of type 2 diabetes and history of recent CVA while at [facility] in 08/2016 as well as history of acute kidney injury with renal stones, status post ureteral stent placed by urologist at [facility]. The patient currently at this time resides at [facility], and the patient was brought to [facility] ER for complaint of left leg pain at the knee area with weakness, anorexia, and some confusion. The patient was reported to have some poor oral intake that has worsened as well as inability to walk secondary to the pain of the left lower extremity. The patient was found to have some dehydration with acute kidney injury with a BUN and creatinine of [address] of the brain was negative for any acute findings but findings of an old stroke. CT of the abdomen and pelvis was unremarkable with some nonobstructing renal calculi and findings of a recent renal ureter stent placed at [facility]. He was admitted to the Hospitalist Service and also cared for by Dr. Driss Santiago. The patient was treated for a gout flare in the left knee which completely resolved the patient's symptoms. He was able to ambulate and seen by Physical Therapy with the resolution of his pain. Also was treated for acute kidney injury with some dehydration with IV fluids. His appetite and anorexia resolved, and the patient was noted to be eating well for several days prior to discharge. His encephalopathy also resolved and was suspected the patient may have had an underlying urinary tract infection and was treated empirically with Rocephin, although no urine culture was sent but some findings of possible mild UTI with urinalysis. He did eventually have one blood culture which did come out positive 1/ and was empirically placed on IV vancomycin for several days. However, urine culture eventually grew out a gluten-negative Staph species which is most likely secondary to contaminant, and vancomycin was discontinued. The patient remained afebrile with improved clinical status and also continued on thiamine as well for his history of encephalopathy which had completely resolved. Urology was consulted for some mild red blood cells found in urinalysis. However, they recommended for the patient to follow up in clinic as an outpatient. He did not have any overt signs of hematuria. He was discharged back to [place] at baseline in stable condition with additional blood pressure medications for blood pressure control. His granddaughter, Berenice, who is the power of trademark attorney, was also updated on several occasions. This discharge required greater than 30 minutes. RADHA/MODL Jaquelin De Paz M.D. / [id number] CC: Stoney Edmond MD
[~2016-11-05 16:05] MED LIST: C1 PO; COREG12 PO; CRESTOR20 MG PO; CYANO1000T PO; FLOMAX4 PO; HALF81 PO; INSNOVR SC; LEVEMIR SC; LOVENOX1C SC; PEP20 PO; PRIN20 PO; REM15 PO; Z100 PO
[2016-11-05 17:21] LABS: BASOPHILS 0.2 %; BASOPHILS ABSOLUTE 0.02 10/3/uL (0.0-0.16); EOSINOPHILS 2.4 %; EOSINOPHILS ABSOLUTE 0.25 10/3/uL (0.0-0.53); ER CBC TAT 0 Hrs 07 Mins; HEMATOCRIT 31.1 % (40.0-51.0); HEMOGLOBIN 10.2 g/dL (13.6-17.8); IMMATURE GRANULOCYTES 0.2 %; IMMATURE GRANULOCYTES ABSOLUTE 0.02 10/3/uL (0.0-0.11); LYMPHOCYTES 26.3 %; LYMPHOCYTES ABSOLUTE 2.72 10/3/uL (0.67-4.30); MEAN CORPUS HGB CONC 32.8 g/dL (32.0-36.0); MEAN CORPUSCULAR VOLUME 88.4 fL (80-100); MEAN PLATELET VOLUME 10.7 fL (9.2-13.0); MONOCYTES 7.7 %; NEUTROPHILS 63.2 %; NEUTROPHILS ABSOLUTE 6.54 10/3/uL (2.02-8.40); PLATELET COUNT 171 10/3/uL (150-400); RBC DISTRIBUTION WIDTH 15.5 % (12.0-16.0); RED CELL COUNT 3.52 10/6/uL (4.7-6.1); WHITE BLOOD CELLS 10.4 10/3/uL (4.5-10.5)
[2016-11-05 17:22] LABS: MANUAL DIFF NO %
[2016-11-05 17:39] LABS: A/G RATIO 0.5 (0.7-1.9); ALBUMIN 2.6 G/DL (3.5-5.0); ALKALINE PHOSPHATASE 72 U/L (45-117); BUN (BLOOD UREA NITROGEN) 40 MG/DL (6-23); CALCIUM, SERUM 9.1 MG/DL (8.5-10.4); CHLORIDE, SERUM 99 MMOL/L (96-112); CO2 (CARBON DIOXIDE) 31 MMOL/L (24-34); CREATININE 1.87 MG/DL (0.70-1.30); GFR AFRICAN AMERICAN 42 ML/MIN (>=60); GFR NON AFRICAN AMERICAN 36 ML/MIN (>=60); GLOBULIN 5.1 G/DL (2.5-4.1); GLUCOSE, SERUM 167 MG/DL (60-99); POTASSIUM, SERUM 4.2 MMOL/L (3.5-5.3); SGOT(AST) 23 U/L (5-40); SGPT(ALT) 18 U/L (5-65); SODIUM, SERUM 139 MMOL/L (135-148); TOTAL BILIRUBIN 0.7 MG/DL (0-1.2); TOTAL PROTEIN 7.7 G/DL (6.0-8.5); TROPONIN I <0.02 NG/ML (<0.05)
[2016-11-05] MEDS ORDERED: Z100 PO (19:07)
[2016-11-05] MEDS ORDERED: NOVOLOG SC (19:07)
[2016-11-05] MEDS ORDERED: ZESTRIL20 MG PO (19:07)
[2016-11-05] MEDS ORDERED: LEVEMIR SC (19:07)
[2016-11-05] MEDS ORDERED: FLOMAX4 PO (19:08)
[2016-11-05] MEDS ORDERED: DEPAKOT250 PO (19:08)
[2016-11-05] MEDS ORDERED: REMERON30 MG PO (19:08)
[2016-11-05] MEDS ORDERED: COREG12 PO (19:08)
[2016-11-05] MEDS ORDERED: CRESTOR20 MG PO (19:08)
[2016-11-05] MEDS ORDERED: C1 PO (19:09)
[2016-11-05 19:46] LABS: LACTATE 1.1 MMOL/L (0.3-2.4)
[2016-11-05 19:57] LABS: ASCORBIC ACID (UR NOT ORDER) NEG (NEG); BILIRUBIN, URINE NEGATIVE (NEG); KETONE, URINE NEGATIVE (NEG); LEUKOCYTE ESTERASE(NOT OR TRACE (NEG); NITRITE (URINE) NEG (NEG); WBC (NOT ORDERED) (RFLEX) 8 (0-5)
[2016-11-05 23:45] LABS: INTERNATIONAL NORMAL RATI 1.4 UNITS (-); PARTIAL THROMBO TIME 36.5 SEC (22.5-37.2); PROTIME (NOT ORD) 17.2 SEC (12.0-14.5)
[2016-11-06 06:27] LABS: BASOPHILS 0.4 %; BASOPHILS ABSOLUTE 0.03 10/3/uL (0.0-0.16); EOSINOPHILS 1.3 %; EOSINOPHILS ABSOLUTE 0.11 10/3/uL (0.0-0.53); HEMOGLOBIN 8.8 g/dL (13.6-17.8); IMMATURE GRANULOCYTES 0.2 %; IMMATURE GRANULOCYTES ABSOLUTE 0.02 10/3/uL (0.0-0.11); LYMPHOCYTES ABSOLUTE 1.41 10/3/uL (0.67-4.30); MEAN CORPUS HGB CONC 32.2 g/dL (32.0-36.0); MEAN CORPUSCULAR HEMOGLOB 28.4 pg (26.0-34.0); MEAN CORPUSCULAR VOLUME 88.1 fL (80-100); MEAN PLATELET VOLUME 10.8 fL (9.2-13.0); MONOCYTES 4.5 %; MONOCYTES ABSOLUTE 0.37 10/3/uL (0.21-1.20); NEUTROPHILS 76.6 %; NEUTROPHILS ABSOLUTE 6.35 10/3/uL (2.02-8.40); PLATELET COUNT 152 10/3/uL (150-400); RBC DISTRIBUTION WIDTH 15.3 % (12.0-16.0); WHITE BLOOD CELLS 8.3 10/3/uL (4.5-10.5)
[2016-11-06 06:41] LABS: HEMATOCRIT 27.3 % (40.0-51.0); MANUAL DIFF NO %
[2016-11-06 06:44] LABS: ALBUMIN 2.2 G/DL (3.5-5.0); CALCIUM, SERUM 8.8 MG/DL (8.5-10.4); CHLORIDE, SERUM 105 MMOL/L (96-112); CO2 (CARBON DIOXIDE) 27 MMOL/L (24-34); FREE T4 1.33 NG/DL (0.76-1.46); GFR AFRICAN AMERICAN 74 ML/MIN (>=60); GFR NON AFRICAN AMERICAN 64 ML/MIN (>=60); GLUCOSE, SERUM 157 MG/DL (60-99); POTASSIUM, SERUM 3.9 MMOL/L (3.5-5.3); SODIUM, SERUM 141 MMOL/L (135-148)
[2016-11-06 06:45] LABS: BUN (BLOOD UREA NITROGEN) 34 MG/DL (6-23); CREATININE 1.17 MG/DL (0.70-1.30)
[2016-11-06 06:51] LABS: INTERNATIONAL NORMAL RATI 1.4 UNITS (-); PROTIME (NOT ORD) 16.7 SEC (12.0-14.5)
[2016-11-07 06:25] LABS: BASOPHILS 0.2 %; BASOPHILS ABSOLUTE 0.01 10/3/uL (0.0-0.16); EOSINOPHILS 0.2 %; EOSINOPHILS ABSOLUTE 0.01 10/3/uL (0.0-0.53); HEMATOCRIT 25.8 % (40.0-51.0); HEMOGLOBIN 8.4 g/dL (13.6-17.8); IMMATURE GRANULOCYTES 0.2 %; IMMATURE GRANULOCYTES ABSOLUTE 0.01 10/3/uL (0.0-0.11); LYMPHOCYTES 27.1 %; LYMPHOCYTES ABSOLUTE 1.79 10/3/uL (0.67-4.30); MEAN CORPUS HGB CONC 32.6 g/dL (32.0-36.0); MEAN CORPUSCULAR HEMOGLOB 28.4 pg (26.0-34.0); MEAN CORPUSCULAR VOLUME 87.2 fL (80-100); MEAN PLATELET VOLUME 10.3 fL (9.2-13.0); MONOCYTES 5.6 %; MONOCYTES ABSOLUTE 0.37 10/3/uL (0.21-1.20); NEUTROPHILS 66.7 %; NEUTROPHILS ABSOLUTE 4.42 10/3/uL (2.02-8.40); PLATELET COUNT 153 10/3/uL (150-400); RBC DISTRIBUTION WIDTH 14.9 % (12.0-16.0); RED CELL COUNT 2.96 10/6/uL (4.7-6.1); WHITE BLOOD CELLS 6.6 10/3/uL (4.5-10.5)
[2016-11-07 06:26] LABS: MANUAL DIFF NO %
[2016-11-07 06:30] LABS: INTERNATIONAL NORMAL RATI 1.3 UNITS (-); PROTIME (NOT ORD) 16.1 SEC (12.0-14.5)
[2016-11-07 06:37] LABS: BUN (BLOOD UREA NITROGEN) 31 MG/DL (6-23); CALCIUM, SERUM 8.4 MG/DL (8.5-10.4); CHLORIDE, SERUM 106 MMOL/L (96-112); CO2 (CARBON DIOXIDE) 27 MMOL/L (24-34); CREATININE 0.82 MG/DL (0.70-1.30); GFR AFRICAN AMERICAN 105 ML/MIN (>=60); GFR NON AFRICAN AMERICAN 91 ML/MIN (>=60); GLUCOSE, SERUM 134 MG/DL (60-99); POTASSIUM, SERUM 4.2 MMOL/L (3.5-5.3); SODIUM, SERUM 141 MMOL/L (135-148)
[2016-11-08 06:24] LABS: INTERNATIONAL NORMAL RATI 1.3 UNITS (-); PROTIME (NOT ORD) 16.3 SEC (12.0-14.5)
[2016-11-09 04:48] LABS: INTERNATIONAL NORMAL RATI 1.2 UNITS (-); PROTIME (NOT ORD) 15.1 SEC (12.0-14.5)
[2016-11-10 07:18] LABS: CALCIUM, SERUM 8.7 MG/DL (8.5-10.4); CHLORIDE, SERUM 103 MMOL/L (96-112); CO2 (CARBON DIOXIDE) 27 MMOL/L (24-34); CREATININE 0.83 MG/DL (0.70-1.30); GFR AFRICAN AMERICAN 105 ML/MIN (>=60); GFR NON AFRICAN AMERICAN 90 ML/MIN (>=60); GLUCOSE, SERUM 126 MG/DL (60-99); POTASSIUM, SERUM 3.8 MMOL/L (3.5-5.3); SODIUM, SERUM 142 MMOL/L (135-148)
[2016-11-10 07:19] LABS: BUN (BLOOD UREA NITROGEN) 21 MG/DL (6-23)
[2016-11-10 07:25] LABS: INTERNATIONAL NORMAL RATI 1.3 UNITS (-); PROTIME (NOT ORD) 15.8 SEC (12.0-14.5)
[2017-01-22] MEDS ORDERED: NORCO1 TA1 PO (13:21)
[2017-01-22] MEDS ORDERED: PEP20 PO (13:22)
[2017-01-22] MEDS ORDERED: PRIN20 PO (13:22)
[2017-01-22] MEDS ORDERED: C5 PO (13:22)
[2017-01-22] MEDS ORDERED: COREG12 PO (13:22)
[2017-01-22] MEDS ORDERED: IMDUR30 PO (13:23)
[2017-01-22] MEDS ORDERED: REMERON30 MG PO (13:23)
[2017-01-22] MEDS ORDERED: Z100 PO (13:23)
[2017-01-22] MEDS ORDERED: CRESTOR20 MG PO (13:25)
[2017-01-22] MEDS ORDERED: FLOMAX4 PO (13:25)
[2017-01-22] MEDS ORDERED: APRES25 PO (13:25)
[2017-01-22] MEDS ORDERED: NOVOLOG SC (13:26)
[2017-01-22] MEDS ORDERED: LEVEMIR SC (13:26)
== END 2016-11-10 21:17 | DRG 682 ==
LOC: ER 16:05 → 5SO 22:58
PROVIDERS: Emergency Medicine; Hospitalist; Internal Medicine; Specialist
DX: N17.9 Acute kidney failure, unspecified (principal); G93.40 Encephalopathy, unspecified; E43 Unspecified severe protein-calorie malnutrition; I48.0 Paroxysmal atrial fibrillation; E86.0 Dehydration; N39.0 Urinary tract infection, site not specified; R63.0 Anorexia; E11.65 Type 2 diabetes mellitus with hyperglycemia; I10 Essential (primary) hypertension; N40.0 Benign prostatic hyperplasia without lower urinary tract symptoms; M10.062 Idiopathic gout, left knee; M1A.9XX0 Chronic gout, unspecified, without tophus (tophi); Z79.4 Long term (current) use of insulin; Z86.73 Personal history of transient ischemic attack (TIA), and cerebral infarction without residual deficits; Z79.899 Other long term (current) drug therapy; Z79.01 Long term (current) use of anticoagulants; R62.7 Adult failure to thrive; I25.5 Ischemic cardiomyopathy
CPT/HCPCS: 70450; 71020; 74176; 80048; 80053; 80069; 81001; 82140; 82570; 82962; 83605; 83935; 84300; 84439; 84443; 84484; 85025; 85610; 85730; 87040; 87150; 93005; 93971; 97116-GP; 97161-GP; 99285; A9270-GY; G8978-CJ-GP; G8979-CJ-GP; G8980-CI-GP; J0360; J3370; J3411